=== PATIENT | male | born 1990 | race Caucasian/White ===

== ENCOUNTER 2019-06-11 08:27 | Day surgery (SDC) | payer SELFPAY ==
[2019-06-11] MEDS ORDERED: diphenhydrAMINE 25 MG in Sodium Chloride 0.9% 50 ML IVPB PRN (08:49)
[2019-06-11] MEDS ORDERED: diphenhydrAMINE 25 MG CAP PO PRN (08:49)
[2019-06-11] MEDS ORDERED: SODIUM CHLORIDE 0.9% IVPB SCH (09:00)
[2019-06-11] MEDS ORDERED: INFLIXIMAB DYYB IVPB SCH (09:00)
[2019-06-11 09:24] VITALS: BP 125/65; TEMP 98.3
== END 2019-06-11 12:13 | disposition home or self-care (01) ==
LOC: ONC/OP 08:27
PROVIDERS: ATTEND Internal Medicine Rheumatology
DX: L40.9 Psoriasis, unspecified (principal)
CPT/HCPCS: 96413; 96415; J1200; J7050; Q5103

== ENCOUNTER 2025-06-02 07:15 | Outpatient (CLI) | payer BC | END 2025-06-02 07:16 | disposition home or self-care (01) | LOC: SCSMRI 07:15 | PROVIDERS: ATTEND Physician Assistant Medical | DX: K76.0 Fatty (change of) liver, not elsewhere classified (principal); K83.8 Other specified diseases of biliary tract; E66.01 Morbid (severe) obesity due to excess calories; L40.50 Arthropathic psoriasis, unspecified; D50.9 Iron deficiency anemia, unspecified; R16.0 Hepatomegaly, not elsewhere classified; R79.89 Other specified abnormal findings of blood chemistry; R13.10 Dysphagia, unspecified | CPT/HCPCS: 74183; 76376; S8037 ==